=== PATIENT | female | born 1985 | race Two or more races ===

== ENCOUNTER → 2019-05-05 | Outpatient (CLI) | payer OTHER | END | disposition home or self-care (01) | LOC: PRENATAL 14:14 | DX: O35.3XX0 Maternal care for (suspected) damage to fetus from viral disease in mother, not applicable or unspecified (principal); O98.912 Unspecified maternal infectious and parasitic disease complicating pregnancy, second trimester ==

== ENCOUNTER 2019-06-19 14:48 | Inpatient (IN) | payer OTHER ==
[~2019-06-19] VITALS: Ht 160 cm; Wt 65.3 kg
[2019-06-20] MEDS ORDERED: PRENATAL TABLE1 EAC3 PO (18:46)
[2019-06-21] MEDS ORDERED: NIFEDIPINE20 MG PO ×2 (14:10)
== END 2019-06-21 14:28 | disposition home or self-care (01) | DRG 833 ==
LOC: OBS/DEL 14:48 → LDR 06-20 17:29
PROVIDERS: ADMIT Obstetrics & Gynecology
PROC: 4A1HXCZ Monitoring of Products of Conception, Cardiac Rate, External Approach (ICD-10-PCS; principal; 2019-06-20)
DX: O47.02 False labor before 37 completed weeks of gestation, second trimester (principal)

== ENCOUNTER 2019-06-24 09:58 | Outpatient (CLI) | payer OTHER ==
[~2019-06-24 09:58] MED LIST: NIFEDIPINE20 MG PO; PRENATAL TABLE1 EAC3 PO
== END 2019-06-25 14:07 | disposition home or self-care (01) ==
LOC: OBS/DEL 09:58
DX: O26.842 Uterine size-date discrepancy, second trimester (principal); O26.892 Other specified pregnancy related conditions, second trimester; R10.2 Pelvic and perineal pain; O60.02 Preterm labor without delivery, second trimester

== ENCOUNTER 2019-08-30 15:00 | Inpatient (IN) | payer OTHER ==
[~2019-08-30] VITALS: Ht 160 cm; Wt 73.5 kg
[2019-09-17] MEDS ORDERED: IRON236 MG PO (08:15)
[2019-09-17] MEDS ORDERED: KEFLEX250 MG PO (08:15)
[2019-09-20] MEDS ORDERED: PANADOL EXTRA500 MG PO (09:30)
[2019-09-20] MEDS ORDERED: IRON236 MG PO (09:30)
[2019-09-20] MEDS ORDERED: PRENATAL TABLE1 EAC3 PO (09:30)
[2019-09-20] MEDS ORDERED: IBUPROFEN800 MG PO (09:30)
== END 2019-09-20 10:16 | disposition home or self-care (01) | DRG 788 ==
LOC: LDR 09-17 05:21 → O/R 09-17 08:26 → SURG-SUITE 09-17 10:33 → OB/GYN 09-23 15:00
PROVIDERS: ADMIT Obstetrics & Gynecology
PROC: 4A1HXCZ Monitoring of Products of Conception, Cardiac Rate, External Approach (ICD-10-PCS; 2019-09-17)
PROC: 10D00Z1 Extraction of Products of Conception, Low, Open Approach (ICD-10-PCS; principal; 2019-09-17 07:00)
DX: O32.2XX0 Maternal care for transverse and oblique lie, not applicable or unspecified (principal); Z22.330 Carrier of Group B streptococcus; Z37.0 Single live birth; Z3A.39 39 weeks gestation of pregnancy

== ENCOUNTER → 2019-08-30 | Outpatient (CLI) | payer OTHER | END | disposition home or self-care (01) | LOC: PRENATAL 10:30 | DX: O26.843 Uterine size-date discrepancy, third trimester (principal); O36.8193 Decreased fetal movements, unspecified trimester, fetus 3; O35.0XX3 Maternal care for (suspected) central nervous system malformation in fetus, fetus 3; O32 Maternal care for malpresentation of fetus ==